=== PATIENT | male | born 1980 | race Two or more races ===

== ENCOUNTER 2018-02-09 10:01 | Emergency (ER) | payer SELFPAY ==
[~2018-02-09] VITALS: Ht 170.2 cm; Wt 72.6 kg
--- NOTE | 2018-02-09 10:28 | NUR ---
BIB SELF, LT THUMB LAC BY A "SKIL SAW" 1 HR AGO PER PT. PT AAOX4, VSS. DENIES ANY OTHER DISCOMFORT @ THIS TIME. AWAITING EVAL BY . WILL CONT TO MONITOR. LT THUMB SOAKED WITH NS. PT CHAR WELL.
[2018-02-09] MEDS ORDERED: LIDOCAINE 1% INJ 50 ML MDV IJ ONE (10:31)
[2018-02-09] MEDS ORDERED: HYDROCODONE/APAP 5/325MG 1 EACH TABLET PO ONE (11:30)
[2018-02-09] MEDS ORDERED: TDAP [DIPH/PERTUSSIS/TET] 0.5 ML VIAL IM ONE ×2 (11:30→11:55)
[2018-02-09] MEDS ORDERED: ONDANSETRON 4 MG TAB.RAPDIS PO ONE (11:30)
[2018-02-09] MEDS ORDERED: ONDANSETRON 4 MG TAB.RAPDIS ONE (11:55)
[2018-02-09] MEDS ORDERED: HYDROCODONE/APAP 5/325MG 1 EACH TABLET ONE (11:55)
[2018-02-09] MEDS ORDERED: IBUPROFEN 600 MG TABLET PO ONE ×2 (12:00→12:30)
[2018-02-09] MEDS ORDERED: CEPHALEXIN MONOHYDRATE 500 MG CAPSULE PO ONE ×2 (12:00→12:06)
--- NOTE | 2018-02-09 12:53 | NUR ---
Patient discharged to home in stable condition. Written and verbal after care instructions given. Patient verbalizes understanding of instruction. SANGEETHA SILVA REPAIRED LAC ON LT THUMB, APPLIED DRESSING , NO ACTIVE BLEEDING NOTED UPON LEAVING ED & INSTRUCTED TO SEE HAND SURGEON KERA. PT ACKNOWLEDGED WITH VERBAL UNDERSTANDING.
[2018-02-09 12:56] VITALS: BP 118/68
== END 2018-02-09 12:57 | disposition home or self-care (01) ==
LOC: ER 10:04
DX: S61.012A Laceration without foreign body of left thumb without damage to nail, initial encounter (principal); F10.10 Alcohol abuse, uncomplicated; Y90.9 Presence of alcohol in blood, level not specified; W26.8XXA Contact with other sharp object(s), not elsewhere classified, initial encounter; Y93.89 Activity, other specified; Y92.89 Other specified places as the place of occurrence of the external cause; Y99.0 Civilian activity done for income or pay
CPT/HCPCS: 73140-TC; 90715; A4606; J3490; Q0162; Z7610